=== PATIENT | male | born 1995 | race Caucasian/White ===

== ENCOUNTER 2017-10-15 05:23 | Emergency (ER) | payer SELFPAY ==
[~2017-10-15] VITALS: Ht 188 cm; Wt 97.1 kg
--- NOTE | 2017-10-15 05:27 | ER Report ---
History and Physical Time Seen By MD: 05:27 HPI/ROS CHIEF COMPLAINT: Sore throat HISTORY OF PRESENT ILLNESS: 22-year-old male presents ambulatory to the ER complaining of a sore throat since yesterday morning. He denies exposure to ill contacts. He notes fever and chills. He notes pain with swallowing. He's had no nausea or vomiting. He denies productive cough, rhinitis or ear pain. REVIEW OF SYSTEMS: Respiratory: No cough, no dyspnea. Cardiovascular: No chest pain, no palpitations. Gastrointestinal: No vomiting, no abdominal pain. Musculoskeletal: No back pain. Allergies: Coded Allergies: No Known Drug Allergies (Unverified , 10/15/17) Home Meds Active Scripts Oxycodone Hcl/Acetaminophen (PERCOCET 5-325 MG TABLET) 1 Each Tablet, 1 EACH PO Q4-6H Y for PAIN, #10 Prov:CARLYMARIO DO 10/15/17 Amoxicillin/Pot Clav 875-125 Mg Tab (AUGMENTIN 875-125 TABLET) 1 Each Tablet, 1 TAB PO Q12H for infection, #14 TAB TAKE ONE TABLET BY MOUTH EVERY 12 HOURS Prov:MARIO CARROLL DO 10/15/17 Reviewed Nurses Notes: Yes Old Medical Records Reviewed: Yes Constitutional Physical Exam General Appearance: The patient is alert, has no immediate need for airway protection and no current signs of toxicity. Mild distress HEENT: Pupils equal and round no injection. TMs normal, oropharynx with moderate erythema, edema and bilateral tonsillar hypertrophy. There is no exudate, strep odor noted Respiratory: Chest is non tender, lungs are clear to auscultation. Cardiac: regular rate and rhythm Gastrointestinal: Abdomen is soft and non tender, no masses, bowel sounds normal. No splenomegaly Musculoskeletal: Neck: Neck is supple and non tender.+ Lymphadenopathy Extremities have full range of motion and are non tender. Skin: No rashes or lesions. DIFFERENTIAL DIAGNOSIS: After history and physical exam differential diagnosis was considered for acute pharyngitis, tonsillitis, strep pharyngitis, peritonsillar abscess, mononucleosis, Medical Decision Making Data Points Laboratory Hematology Test 10/15/17 05:30 Group A Streptococcus Screen Negative (NEGATIVE) Chemistry Test 10/15/17 05:30 Group A Streptococcus Screen Negative (NEGATIVE) Microbiology Microbiology Date/Time Source Procedure Growth Status 10/15/17 05:30 Throat Group A Streptococcus Screen ([facility]) - Final CONFIRMATORY CULTURE NEGATIVE FOR DAMEON... Complete ED Course/Re-evaluation ED Course Patient was admitted to an examination room. H&P was done. The differential diagnoses was considered. On clinical examination. Patient has a very erythematous throat with significant edema. There is no evidence of obstruction at this time. No evidence of peritonsillar abscess. Patient's treated with Decadron 12 mg, Augmentin 875 mg twice a day. Patient's given a limited supply of Percocet for Her pain relief. He is advised to continue ibuprofen 600 mg 3 times daily. He is advised to return to the ER for any difficulty swallowing or breathing. An information to follow up with Dr. Evan Montemayor ENT. Decision to Disposition Date: Oct 15, 2017 Decision to Disposition Time: 05:35 Depart Departure Latest Vital Signs Impression: Primary Impression: Acute streptococcal pharyngitis Condition: Improved Disposition: HOME OR SELF-CARE Referrals: EVAN MONTEMAYOR JR, MD New Scripts Oxycodone Hcl/Acetaminophen (PERCOCET 5-325 MG TABLET) 1 Each Tablet 1 EACH PO Q4-6H Y for PAIN, #10 Prov: MARIO CARROLL DO 10/15/17 Amoxicillin/Pot Clav 875-125 Mg Tab (AUGMENTIN 875-125 TABLET) 1 Each Tablet 1 TAB PO Q12H for infection, #14 TAB TAKE ONE TABLET BY MOUTH EVERY 12 HOURS Prov: MARIO CARROLL DO 10/15/17 Patient Instructions: Strep Throat (ED) Additional Instructions: Take ibuprofen 200 mg 3 tablets 3 times a day with food Return to the ER for any worsening Follow-up with your primary care if unimproved in 3-5 days or go to the physician listed on your paperwork MARIO CARROLL DO Oct 15, 2017 05:27
[2017-10-15] MEDS ORDERED: OXYC-865 PO (05:38)
[2017-10-15] MEDS ORDERED: AMOX-559 PO (05:38)
[2017-10-15] MEDS ORDERED: AMOX/CLAV 875 MG TAB PO ONE ×3 (05:40)
[2017-10-15] MEDS ORDERED: DEXAMETHASONE 4 MG TAB PO ONE (05:40)
[2017-10-15] MEDS ORDERED: oxyCODONE/ACETAMIN 5/325MG TH 2 TAB/BOTTLE PO ONE ×2 (05:40)
[2017-10-15 05:55] VITALS: BP 144/78
== END 2017-10-15 06:00 | disposition home or self-care (01) ==
LOC: ER 05:26
DX: J02.0 Streptococcal pharyngitis (principal)
CPT/HCPCS: 87081; 87880; 99282; J8540

== ENCOUNTER 2018-02-13 14:35 | Emergency (ER) | payer OTHER ==
[~2018-02-13 14:35] MED LIST: AMOX-559 PO; OXYC-865 PO
[2018-02-13 14:50] VITALS: BP 124/65
--- NOTE | 2018-02-13 14:51 | ER Report ---
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 Cardiovascular: No chest pain, no palpitations. Gastrointestinal: No vomiting, no abdominal pain. Musculoskeletal: Left shoulder pain Remainder of the 14 system rev: Yes Allergies: Coded Allergies: No Known Drug Allergies (Unverified , 02/13/18) Home Meds Discontinued Scripts Oxycodone Hcl/Acetaminophen (PERCOCET 5-325 MG TABLET) 1 Each Tablet, 1 EACH PO Q4-6H Y for PAIN, #10 Prov:MARIO CARROLL DO 10/15/17 Amoxicillin/Pot Clav 875-125 Mg Tab (AUGMENTIN 875-125 TABLET) 1 Each Tablet, 1 TAB PO Q12H for infection, #14 TAB TAKE ONE TABLET BY MOUTH EVERY 12 HOURS Prov:CARLYMARIO DO 10/15/17 Reviewed Nurses Notes: Yes Old Medical Records Reviewed: Yes Constitutional Vital Sign - Last 24 Hours 02/13/18 14:50 Temp 98.2 Pulse 82 Resp 16 B/P (MAP) 124/65 Pulse Ox 94 Physical Exam General appearance: Alert no distress. Respiratory: Chest is non tender, lungs are clear to auscultation. Cardiac: Regular rate and rhythm [ ] Left shoulder examination shows pain to palpation of the before meals joint pain with extension abduction past 90 abduction plus external rotation neurovascular intact otherwise unremarkable DIFFERENTIAL DIAGNOSIS: After history and physical exam differential diagnosis was considered for exacerbation of before meals separation fracture displacement of before meals joint dislocation Medical Decision Making ED Course/Re-evaluation ED Course ED clinical course medical decision-making this 22-year-old male had a prior before meals separation repair done had a pop while he was at work x-ray showed no fractures dislocation subluxation intact repair we'll put him in a sling and have orthopedic follow-up Decision to Disposition Date: Feb 13, 2018 Decision to Disposition Time: 15:25 Depart Departure Latest Vital Signs Vital Signs Date Time Temp Pulse Resp B/P (MAP) Pulse Ox O2 Delivery O2 Flow Rate FiO2 4/25/18 14:50 98.2 82 16 124/65 94 Impression: Primary Impression: Shoulder pain Condition: Improved Disposition: HOME OR SELF-CARE Referrals: CLEO MARIN MD 5 Days Patient Instructions: Shoulder Separation Exercises (GEN) JENELLE DE LA O MD Feb 13, 2018 14:51
--- NOTE | 2018-02-13 15:24 | RADIOLOGY IMAGING REPORT ---
[place] [facility] [place] NAME: Thony Faye : 1995 MR: [id number] V: [id number] EXAM DATE: ORDERING PHYSICIAN: JENELLE DE LA O TECHNOLOGIST: Location: [facility] - [place] Patient: Thony Faye : 1995 Visit/Account:[id number] Date of Sevice: 02/13/2018 Exam type: SHOULDER MIN 2 VIEWS LEFT History: trauma Comparison: None. Findings: Two views the left shoulder reveal no evidence of acute fracture-dislocation at the left glenohumeral joint. There is a left AC joint separation which is likely chronic. There are lucent tracks in the distal left clavicle likely from prior hardware. There is also a heterotopic calcifications/ossific ation projecting just inferior to the distal left clavicle IMPRESSION: 1. No evidence of acute fracture-dislocation involving the left shoulder Old postsurgical/post traumatic changes of the distal left clavicle and AC joint Report Dictated By: Tiffanie Wooten MD at 02/13/2018 3:18 PM Report E-Signed By: Tiffanie Wooten MD at 02/13/2018 3:21 PM WSN:[id number]
== END 2018-02-13 15:38 | disposition home or self-care (01) ==
LOC: ER 15:10
DX: M25.512 Pain in left shoulder (principal)
CPT/HCPCS: 73030; 99282; A4565

== ENCOUNTER 2018-03-03 12:45 | Emergency (ER) | payer OTHER ==
[2018-03-03] MEDS ORDERED: ONDANSETRON 4 MG/2 ML VIAL IVP ONE (13:10)
[2018-03-03] MEDS ORDERED: MORPHINE 4 MG/ML SDV IVP ONE (13:10)
--- NOTE | 2018-03-03 13:13 | ER Report ---
History and Physical Time Seen By MD: 13:00 Hx. of Stated Complaint: TESTICULAR PAIN SINCE LAST NIGHT. DOESN'T REMEMBER DOING ANYTHING THAT MIGHT HAVE STARTED IT HPI/ROS CHIEF COMPLAINT: Testicle pain HISTORY OF PRESENT ILLNESS: This is a 22-year-old male who presents to the emergency department for testicular pain. Patient states that last night he developed some discomfort in his left testicle intermittently through the night and progressively getting worse today. Patient states that now he has significant left-sided testicular pain. Uncomfortable to move, walk. A solution that "the left testicle is riding higher". Patient denies dysuria or STD symptoms. Patient states he does use condoms when he is having intercourse. A solution he is not concerned about STDs. Patient denies aches, chills, nausea, vomiting, diarrhea. REVIEW OF SYSTEMS: Respiratory: No cough, no dyspnea. Cardiovascular: No chest pain, no palpitations. Gastrointestinal: No vomiting, no abdominal pain. Musculoskeletal: No back pain. Genitourinary: As above. Allergies: Coded Allergies: No Known Drug Allergies (Unverified , 03/03/18) Home Meds Active Scripts Doxycycline Hyclate (DOXYCYCLINE HYCLATE) 100 Mg Tablet, 100 MG PO BID for 10 Days, #20 TAB 0 Refills Prov:DUC HILLMAN MANAGER AMBULATORY-BC 03/03/18 Past Medical/Surgical History Patient has a past medical and surgical history of left shoulder surgery. Reviewed Nurses Notes: Yes Hx Substance Use Disorder: No Constitutional Vital Sign - Last 24 Hours 03/03/18 03/03/18 03/03/18 03/03/18 12:50 12:53 13:00 13:31 Temp 98.1 Pulse 99 Resp 28 B/P (MAP) 160/94 160/94 (116) 145/83 (103) 137/85 (102) Pulse Ox 94 O2 Delivery Room Air 03/03/18 03/03/18 03/03/18 03/03/18 13:45 14:00 14:15 14:30 Pulse 65 64 B/P (MAP) 138/79 (98) 131/74 (93) Pulse Ox 93 03/03/18 03/03/18 14:35 14:35 Pulse 62 62 B/P (MAP) 131/74 (93) Pulse Ox 94 94 Physical Exam General Appearance: The patient is alert, has no immediate need for airway protection and no current signs of toxicity. Eyes: Pupils equal and round no injection. Respiratory: Chest is non tender, lungs are clear to auscultation. Cardiac: regular rate and rhythm. Gastrointestinal: Abdomen is soft and non tender, no masses, bowel sounds normal. Genitourinary: Positive cremasteric reflex bilaterally. Right testicle is riding higher than the left testicle. No lesions or discharge noted. Patient is uncircumcised. Left testicle painful to palpation, there is a little more fluid felt the left testicle. No inguinal findings bilaterally. Musculoskeletal: Neck: Neck is supple and non tender. Extremities have full range of motion and are non tender. Skin: No rashes or lesions. DIFFERENTIAL DIAGNOSIS: After history and physical exam differential diagnosis was considered for testicular pain including but not limited to epididymitis, orchitis, referred pain from kidney stone, inguinal hernia, and torsion of the testicle. Medical Decision Making Data Points Laboratory Hematology Test 03/03/18 13:07 Urine Color Yellow Urine Clarity Clear Urine pH 5.0 pH (4.8-9.5) Urine Specific [place] 1.030 Urine Protein 30 mg/dL (NEGATIVE) Urine Glucose (UA) Negative mg/dL (NEGATIVE) Urine Ketones 20 mg/dL (NEGATIVE) Urine Blood Small (NEGATIVE) Urine Nitrite Negative (NEGATIVE) Urine Bilirubin Negative (NEGATIVE) Urine Urobilinogen Negative mg/dL (0.2-1.9) Urine Leukocyte Esterase Negative (NEGATIVE) Urine RBC 14 /HPF (0-2/HPF) Urine WBC <1 /HPF (0-5/HPF) Urine Squamous Epithelial Cells Few /LPF (</=FEW) Urine Bacteria Negative /HPF (NONE-FEW) Urine Mucus Few /HPF (NONE-FEW) Chemistry Test 03/03/18 13:07 Urine Color Yellow Urine Clarity Clear Urine pH 5.0 pH (4.8-9.5) Urine Specific [place] 1.030 Urine Protein 30 mg/dL (NEGATIVE) Urine Glucose (UA) Negative mg/dL (NEGATIVE) Urine Ketones 20 mg/dL (NEGATIVE) Urine Blood Small (NEGATIVE) Urine Nitrite Negative (NEGATIVE) Urine Bilirubin Negative (NEGATIVE) Urine Urobilinogen Negative mg/dL (0.2-1.9) Urine Leukocyte Esterase Negative (NEGATIVE) Urine RBC 14 /HPF (0-2/HPF) Urine WBC <1 /HPF (0-5/HPF) Urine Squamous Epithelial Cells Few /LPF (</=FEW) Urine Bacteria Negative /HPF (NONE-FEW) Urine Mucus Few /HPF (NONE-FEW) Urinalysis Test 03/03/18 13:07 Urine Color Yellow Urine Clarity Clear Urine pH 5.0 pH (4.8-9.5) Urine Specific [place] 1.030 Urine Protein 30 mg/dL (NEGATIVE) Urine Glucose (UA) Negative mg/dL (NEGATIVE) Urine Ketones 20 mg/dL (NEGATIVE) Urine Blood Small (NEGATIVE) Urine Nitrite Negative (NEGATIVE) Urine Bilirubin Negative (NEGATIVE) Urine Urobilinogen Negative mg/dL (0.2-1.9) Urine Leukocyte Esterase Negative (NEGATIVE) Urine RBC 14 /HPF (0-2/HPF) Urine WBC <1 /HPF (0-5/HPF) Urine Squamous Epithelial Cells Few /LPF (</=FEW) Urine Bacteria Negative /HPF (NONE-FEW) Urine Mucus Few /HPF (NONE-FEW) EKG/Imaging Imaging Location: [facility] Patient: Thony Faye : 1995 Visit/Account:[id number] Date of Sevice: 03/03/2018 Testicular ultrasound. HISTORY: Pain left testis since last night. COMPARISON: None. Right testicular length: 4.4 cm. Right intratesticular blood flow: Increased. Right hydrocele: No. Right varicocele: No. Right epididymal head thickness: 1.1 cm. No right intratesticular masses. Left testicular length: 4.1 cm. Left testicular blood flow: Increased. Left hydrocele: No. Left varicocele: No. Left epididymal head thickness: 1.1 cm. No left intratesticular masses. The testes are slightly hyperemic bilaterally. The epididymis is slightly hyperemic bilaterally. IMPRESSION: Negative for evidence of testicular torsion. The findings suggest mild bilateral epididymitis/orchitis. Results were discussed with DUC HILLMAN at 03/03/2018 2:25 PM. Report Dictated By: Josemanuel Myles MD at 03/03/2018 2:19 PM Report E-Signed By: Josemanuel Myles MD at 03/03/2018 2:26 PM WSN:[id number] ED Course/Re-evaluation Clinical Indication for ER IV: IV Access ED Course The patient was admitted to room. A history physical were obtained. Differential diagnoses were considered. An ultrasound of the testicles was negative for torsion however it does appear that the patient has epididymitis and orchitis bilaterally. I did update the patient on these findings and did tell him that the most common cause of the epididymitis and orchitis is 6 like transmitted disease. I did tell the patient that we did send the urine out for GC chlamydia patient states he is okay with this I did tell him we'll go ahead and treat him with an IM injection of ceftriaxone as well as 10 day course of doxycycline. Patient is in agreement with this care and was discharged home. The patient and other questions or concerns. Patient was also instructed to remain abstinent for 7-14 days and I did reiterate the necessity for condom use. Decision to Disposition Date: March 03, 2018 Decision to Disposition Time: 14:54 Depart Departure Latest Vital Signs Vital Signs Date Time Temp Pulse Resp B/P (MAP) Pulse Ox O2 Delivery O2 Flow Rate FiO2 03/03/18 14:35 62 94 03/03/18 14:35 131/74 (93) 03/03/18 12:50 98.1 28 Room Air Impression: Primary Impression: Epididymitis Condition: Improved Disposition: HOME OR SELF-CARE New Scripts Doxycycline Hyclate (DOXYCYCLINE HYCLATE) 100 Mg Tablet 100 MG PO BID for 10 Days, #20 TAB 0 Refills Prov: DUC HILLMAN-RADHA 03/03/18 Patient Instructions: Epididymitis (ED), Epididymo-Orchitis (ED) Additional Instructions: Drink plenty of water. Get plenty of rest. Take the Doxycycline as prescribed. No sexual intercourse for at least 7 days. We will call with the GC/Chlamydia results. Return to the ED for any other concerns or worsening symptoms. DUC HILLMAN-BC March 03, 2018 13:13
--- NOTE | 2018-03-03 14:28 | RADIOLOGY IMAGING REPORT ---
FACILITY: [facility] - [place] PATIENT NAME: Thony Faye : 1995 MR: [id number] V: [id number] EXAM DATE: ORDERING PHYSICIAN: DUC HILLMAN TECHNOLOGIST: Location: [facility] - [place] Patient: Thony Faye : 1995 Visit/Account:[id number] Date of Sevice: 03/03/2018 Testicular ultrasound. HISTORY: Pain left testis since last night. COMPARISON: None. Right testicular length: 4.4 cm. Right intratesticular blood flow: Increased. Right hydrocele: No. Right varicocele: No. Right epididymal head thickness: 1.1 cm. No right intratesticular masses. Left testicular length: 4.1 cm. Left testicular blood flow: Increased. Left hydrocele: No. Left varicocele: No. Left epididymal head thickness: 1.1 cm. No left intratesticular masses. The testes are slightly hyperemic bilaterally. The epididymis is slightly hyperemic bilaterally. IMPRESSION: Negative for evidence of testicular torsion. The findings suggest mild bilateral epididymitis/orchitis. Results were discussed with DUC HILLMAN at 03/03/2018 2:25 PM. Report Dictated By: Josemanuel Myles MD at 03/03/2018 2:19 PM Report E-Signed By: Josemanuel Myles MD at 03/03/2018 2:26 PM WSN:[id number]
[2018-03-03] MEDS ORDERED: cefTRIAXone 250 MG VIAL IM ONE (14:30)
[2018-03-03] MEDS ORDERED: DOXY-179 PO (14:34)
[2018-03-03 14:35] VITALS: BP 131/74
== END 2018-03-03 14:57 | disposition home or self-care (01) ==
LOC: ER 13:10
DX: N45.1 Epididymitis (principal)
CPT/HCPCS: 76870; 81001; 87491; 87591; 96372; 96374; 96375; 99284; J0696; J2270; J2405